=== PATIENT | female | born 2005 | race Caucasian/White ===

== ENCOUNTER 2025-01-02 14:25 | Outpatient (CLI) | payer OTHER, SELFPAY | END 2025-01-02 14:26 | disposition home or self-care (01) | LOC: NFLDREF 23:50 | PROVIDERS: PCP Family Medicine; Referring Provider Family Medicine; Visit Provider Physician Assistant | DX: N30.00 Acute cystitis without hematuria (principal); B96.20 Unspecified Escherichia coli [E. coli] as the cause of diseases classified elsewhere | CPT/HCPCS: 87086 ==